=== PATIENT | female | born 1995 | race Caucasian/White ===

== ENCOUNTER 2018-11-07 19:51 | Emergency (ER) | payer BC, OTHER ==
[~2018-11-07] VITALS: Ht 165.1 cm; Wt 62.0 kg
[2018-11-08 02:15] VITALS: BP 110/71
== END 2018-11-08 03:25 | disposition home or self-care (01) ==
LOC: EDBD 19:51 → ED 11-08 03:06
DX: T74.21XA Adult sexual abuse, confirmed, initial encounter (principal); M54.5 Low back pain; R00.0 Tachycardia, unspecified; F41.1 Generalized anxiety disorder; F10.10 Alcohol abuse, uncomplicated; Z72.9 Problem related to lifestyle, unspecified
CPT/HCPCS: 36415; 80048; 81001; 82040; 84703; 85025; 87491; 87591; 93005; 96361; 96372; 96374; 96375; 96376; 99284; J0696; J2060; J2405; J2550; J7030